=== PATIENT | female | born 1955 ===

== ENCOUNTER → 2023-08-14 10:42 | Outpatient (BNVA) | payer MEDICARE, SELFPAY | PROVIDERS: Referring Provider Orthopaedic Surgery; Visit Provider Specialist | DX: M50.81 Other cervical disc disorders, high cervical region (principal); R20.0 Anesthesia of skin; R20.2 Paresthesia of skin | CPT/HCPCS: 99205 ==

== ENCOUNTER 2023-09-18 10:00 | Outpatient (CLI) | payer MEDICARE, SELFPAY ==
--- NOTE | 2023-09-18 11:00 | MR_ITS ---
WS: [id number] MRI CERVICAL SPINE NONCONTRAST TECHNIQUE: Sagittal T1, T2 and STIR imaging. Axial T2, gradient, and fiesta imaging. CLINICAL INFORMATION: M50.90 - Cervical disc disorder, unspecified, unspecified... COMPARISON: None. FINDINGS: Mild cervical curve. Straightening normal cervical lordosis. Prior ACDF C5-C6. Small disc protrusions worse at C3-C4 and C6-C7. Slight retrolisthesis C3 on C4. C2-C3: Mild LEFT facet arthropathy. Mild LEFT foraminal narrowing. C3-C4: Slight retrolisthesis. Small central protrusion with indentation on the cervical cord and mild to moderate central canal stenosis. Mild to moderate bilateral bony foraminal narrowing with moderat e facet arthropathy. Uncovertebral joint hypertrophy. C4-C5: Mild bilateral bony foraminal narrowing. Spine canal is patent. Moderate facet arthropathy. C5-C6: Postoperative changes ACDF. Mild LEFT and no significant RIGHT foraminal narrowing. Spinal can al is patent. C6-C7: Moderate to severe LEFT bony foraminal narrowing. Mild RIGHT bony foraminal narrowing. Spinal canal is patent. C7-T1: Mild LEFT and no significant RIGHT bony foraminal narrowing. Spinal canal is patent. Visualized brain stem structures: Normal. Prevertebral soft tissues: Normal. IMPRESSION: 1. Straightening the normal cervical doses. Prior ACDF C5-6. 2. Mild to moderate central canal stenosis C3-C4 with central disc protrusion and indentation cervic al cord. 3. Severe LEFT C6-7 bony foraminal narrowing. 4. Mild bilateral C3-4 bony foraminal narrowing. Mild LEFT C5-C6 and C7-T1 bony foraminal narrowing.
== END 2023-09-18 10:01 | disposition home or self-care (01) ==
LOC: RAD 10:01
PROVIDERS: Visit Provider Specialist
DX: M50.90 Cervical disc disorder, unspecified, unspecified cervical region (principal); Z98.1 Arthrodesis status; M48.02 Spinal stenosis, cervical region; M50.21 Other cervical disc displacement, high cervical region
CPT/HCPCS: 72141

== ENCOUNTER → 2023-12-05 11:54 | Outpatient (BNVA) | payer MEDICARE, SELFPAY | PROVIDERS: PCP Family Medicine; Visit Provider Specialist | DX: G62.9 Polyneuropathy, unspecified (principal); R29.90 Unspecified symptoms and signs involving the nervous system; R20.0 Anesthesia of skin; R20.2 Paresthesia of skin; M50.923 Unspecified cervical disc disorder at C6-C7 level | CPT/HCPCS: 99215 ==